=== PATIENT | female | born 1945 | race Caucasian/White ===

== ENCOUNTER → 2023-08-08 10:43 | Outpatient (REF) | payer MEDICARE, OTHER, SELFPAY ==
[2023-08-08 16:52] LABS: Free T3 3.45 pg/ml (2.77-5.27); Free T4 1.35 ng/dl (0.78-2.19)
== END ==
LOC: HWLAB 10:43
PROVIDERS: ATTENDING PHYSICIAN Nurse Practitioner
DX: E03.9 Hypothyroidism, unspecified (principal)
CPT/HCPCS: 36415; 84439; 84443; 84481

== ENCOUNTER 2023-08-31 08:52 | Emergency (ER) | payer MEDICARE, OTHER, SELFPAY ==
[2023-08-31] VITALS (18 sets, daily range): BP systolic 94–136; BP diastolic 52–119; BMI 25.6
[2023-08-31 09:34] LABS: % Eosinophils 2.2 % (0-6); % Immature Granulocytes 0.6 % (0-0.5); % Lymphocytes 26.2 % (20.5-51.1); % Monocytes 7.5 % (1.7-9.3); % Neutrophils 62.5 % (42.2-75.2); Absolute Basophils 0.1 10^3/uL (0-0.2); Absolute Eosinophils 0.2 10^3/uL (0-0.7); Absolute Lymphocytes 1.8 10^3/uL (1.2-3.4); Absolute Monocytes 0.5 10^3/uL (0.1-0.6); Absolute Neutrophils 4.3 10^3/uL (1.4-6.5); Hematocrit 48.9 % (37.0-47.0); Hemoglobin 16.5 g/dL (12.0-16.0); Mean Corp Hgb Conc. 33.7 g/dL (33.0-37.0); Mean Corpuscular Hgb 32.7 pg (27.0-31.0); Mean Corpuscular Volume 96.8 fL (81.0-99.0); Mean Platelet Volume 11.3 fL (7.4-10.4); Nucleated Red Blood Cells % 0 %; Platelet Count 203 10^3/uL (130-400); Red Blood Cell Count 5.05 10^6/uL (4.20-5.40); Red Cell Dist. Width 12.4 % (11.5-14.5); White Blood Cell Count 6.8 10^3/uL (4.8-10.8)
[2023-08-31 09:46] LABS: ALT (SGPT) 31 U/L (0-35); AST (SGOT) 30 U/L (14-36); Albumin 4.5 g/dl (3.5-5.0); Alkaline Phosphatase 61 U/L (38-126); Blood Urea Nitrogen 22 mg/dl (7-17); Calcium 10.1 mg/dl (8.4-10.2); Carbon Dioxide 27 mmol/L (22-30); Chloride 104 mmol/L (98-107); Estimated Creatinine Clearance 42 ml/min; Glucose 108 mg/dl (70-99); Potassium 4.3 mmol/L (3.5-5.1); Sodium 136 mmol/L (135-145); Total Bilirubin 1.1 mg/dl (0.2-1.3); Total Protein 7.2 g/dl (6.3-8.2); eGFR > 60.00
[2023-08-31] MEDS: DIPRIVAN 60 MG IV (10:46)
--- NOTE | 2023-08-31 11:24 | ED.GENMED ---
History of Present Illness
General
Chief Complaint: Cardiac Symptoms
Source: patient
Exam Limitations: none
Time Seen by Provider: 08/31/23 09:06
Nursing documentation reviewed up to this point in time: agreed with
Travel History
Have you had any contact with someone who has COVID-19?: No
Do you have any symptoms of coronavirus? Fever > 100 degrees, chills, cough, shortness of breath, sore throat, loss of taste or smell, muscle aches, or headache?: No
History of Present Illness
History of Present Illness:
Nfezcqv-gzwk-son female presents to the emergency department due to a rapid heart rate. She had a rapid heart rate in the 120s on , and called her pants closer on Friday. She spoke with Dr. Coates, and was told to increase her
metoprolol, and if her heart rate was still elevated in 1 to 2 days, to come to the emergency department.
Past History
Past History
ED Past Medical History: Arrthythmia and Hypothyroidism
ED Past Surgical History: Cardiac (Valvuloplasty/mitral valve) and Gynecological
Social History
Tobacco: Non-smoker
Alcohol: None
Drug: None
Personal: Other (a friend is accomanying her today)
Living: alone
Employment: Retired
Family History
Family History: Other (Noncontributory)
Review of Systems
Review of Systems
Allergies reviewed?: Yes
All Other Systems: Not applicable
Constitutional: Reports no symptoms
EENT: Reports no symptoms
Respiratory: Reports no symptoms
Cardiac: Reports no symptoms
ABD/GI: Reports no symptoms
: Reports no symptoms
Musculoskeletal: Reports no symptoms
Skin: Reports no symptoms
Neurological: Reports no symptoms
Endocrine: Reports no symptoms
Hematologic/Lymphatic: Reports no symptoms
Psychiatric: Reports no symptoms
Phy Exam
Physical Exam
Physical Exam:
Physical Exam
General: no apparent distress, not acutely ill
Neck: supple. no meningeal signs. normal posterior pharynx
Heart: s1/s2 tachycardia, regular rhythm, no murmur. equal radial
pulses.
HEENT: Pupils equal round reactive to light, EOMI
Lungs: no acute respiratory distress. clear bilaterally
Abdomen: normal bowel sounds. not tender. no CVAT
Neuro: alert and oriented. no focal neurological deficits cranial nerves II through XII intact
Skin: no rash
Psychiatric: well kept. interactive and cooperative
Extremities: no edema. no calf tenderness. negative homans. good distal pulses
Course
Orders/Labs/Results
Orders:
Orders
08/31/23 09:01
EKG [Electrocardiogram (*1)] Urgent
Reason for Study: Palpitations
EKG- Treatment ONCE
08/31/23 09:25
Complete Blood Count/With Diff Urgent
Comprehensive Metabolic Panel Urgent
08/31/23 10:01
Propofol [Diprivan] 60 mg IV NOW STA
08/31/23 10:02
ASA Classification Routine
08/31/23 10:50
Electrocardiogram (*1) Urgent
Reason for Study: Other
Other Reason for Exam: s/p cardioversion
08/31/23 10:51
EKG- Treatment ONCE
Abnormal Lab Results
08/31/23
09:25
Hgb 16.5 H g/dL
(12.0-16.0)
Hct 48.9 H %
(37.0-47.0)
MCH 32.7 H pg
(27.0-31.0)
MPV 11.3 H fL
(7.4-10.4)
Immature Gran % 0.6 H %
(0-0.5)
BUN 22 H mg/dl
(7-17)
Glucose 108 H mg/dl
(70-99)
08/31/23 09:25
08/31/23 09:25
Vital Signs
Initial and Last Documented VS:
Initial Vital Signs
Temp Pulse Resp BP Pulse Ox
98.6 F 141 18 133/89 97
08/31/23 08:57 08/31/23 08:57 08/31/23 08:57 08/31/23 08:57 08/31/23 08:57
Last Documented Vital Signs
Temp Pulse Resp BP Pulse Ox
98.6 F 77 15 99/81 96
08/31/23 08:57 08/31/23 11:00 08/31/23 11:00 08/31/23 11:00 08/31/23 11:00
Procedures
Moderate Sedation
ASA Risk Score: Class II
Chart and allergies reviewed: Yes
Consent for anesthesia obtained: Yes
Time out completed (validating right patient & procedure): Yes
Moderate Sedation Start Time(when first medication is given): 10:46
History of difficult intubation: No
Airway free of obstruction: Yes
Patient has a gag reflex: Yes
Patient is able to open mouth: Yes
Patient has no dentures: Yes
Patient has no loose teeth: Yes
Medication administered by Provider during Moderate Sedation: IV Propofol (mg)
Total dose administered: 60
Time drug administered: 10:46
Moderate Sedation Procedure End Time: 10:56
Cardioversion
Indication:: Other (aflutter)
Performed by:: [facility]
Synchronized?: Yes
Energy Used: 150 joules
Number of attempts: 1
Successful?: Yes
ASA Risk Score: Class II
Any reaction or bad outcome to prior sedation/anesthesia?: No history of a reaction
Sedation level to be attained: moderate
Chart and allergies reviewed: Yes
Patient reassessed prior to sedation: Yes
Time out completed at (validating right patient & procedure): 10:45
History of difficult intubation: No
Airway free of obstruction: Yes
Patient has a gag reflex: Yes
Patient is able to open mouth: Yes
Patient has no dentures: Yes
Patient has no loose teeth: Yes
Medication administered by Provider during Moderate Sedation: IV Propofol (mg)
Total dose administered: 60
Time drug administered: 10:46
Start Time: 10:46
Stop Time: 10:56
MDM/Problems Addressed
Differential Diagnosis Includes:
Rapid atrial fibrillation, rapid atrial flutter, hyperthyroidism
MDM/Problems Addressed:
77 yo female with rapid atrial flutter. Asymptomatic. D/w Dr. Garcia, recommended cardioversion. Cardioversion was successful. Stable for discharge. Will increase metoprolol to 25 mg twice daily.
Chronic conditions affecting care: Arrhythmia
Acute Exacerbation and/or Progression of Chronic Illness: Arrhythmia
*Critical Care Note
Total Time (30-74mins, 75-104mins- exclusive of procedures): Not Applicable
ED Attending Note
-
Portions of this chart may have been created with voice recognition software.� Occasional wrong word or��sound alike� substitutions may have occurred due to the inherent limitations of voice recognition software.
Discharge Plan
Departure
Patient Disposition: Home (Routine Discharge)
Date of Disposition: 08/31/23
Time of Disposition: 11:35
Patient with high blood pressure during this ER visit?: No
Condition: Good
Discharge Problem:
Atrial flutter
Instructions: Atrial Fibrillation and Atrial Flutter ED, MODERATE SEDATION ADULT
Prescriptions:
No Action
levothyroxine 100 MCG tablet
100 mcg PO SUMOWETHFRSA
alprazolam 0.5 mg Tablet
0.125 mg PO DAILYPRN PRN (Reason: anxiety/sleep)
Eliquis 5 mg Tablet
5 mg PO BID
acetaminophen [Tylenol] 325 mg Tablet
325 mg PO PRN PRN (Reason: pain)
estrogens-methyltestosterone 0.625-1.25 mg Tablet
0.5 tab PO Q72H
medroxyprogesterone 2.5 mg Tablet
2.5 mg PO Q72H
calcium carb-D3-mag ox-zinc ox 333 mg-133 unit -133 mg-5 mg Tablet
1 tab PO HS
levothyroxine 75 mcg Tablet
75 mcg PO .Q72H
biotin 1,000 mcg Tablet,Chewable
3,000 mcg PO DAILY
tramadol 50 mg Tablet
25 mg PO DAILYPRN PRN (Reason: pain)
Rx Instructions:
Only takes during long flights
fluticasone propionate 50 mcg/actuation [place],Suspension
1 spray INTRANASAL DAILY PRN (Reason: congestion)
Rx Instructions:
pain in ears; takes with air travel
Probiotic/Prebiotic
1 cap PO DAILY
metoprolol succinate 25 mg Tablet Extended Release 24 Hr
25 mg PO DAILY
pantoprazole [pantoprazole] 40 mg tablet,delayed release (DR/EC)
40 mg PO DAILY Qty: 60 0RF
Rx Instructions:
Twice a day for 1 month post procedure, then stop
Referrals:
Bal Nelson MD [Active] - Call in 1-3 days for appt
Rajani Escobar CRNP [Family Provider] -
Activity Restrictions/Additional Instructions:
Increase metoprolol to 25 mg twice a day. Follow-up with cardiology.
Interventions
Interventions:
*Risk Screen - Suicide Last Done: 08/31/23 09:00
*General Assessment Last Done: 08/31/23 09:00
*Neglect/Abuse Screening Last Done: 08/31/23 09:00
*ED COVID-19 Vaccine History Last Done: 08/31/23 09:00
ED- Pulmonary Assessment Last Done: 08/31/23 09:14
ED- Cardiac Assessment Last Done: 08/31/23 09:14
Discharge Date and Time
Print Language: SLOVAK
[2023-08-31 13:25] LABS: TSH Reflex To Free T4 0.08 uIU/ml (0.47-4.68)
[2023-08-31 13:54] LABS: Free T4 1.41 ng/dl (0.78-2.19)
== END 2023-08-31 12:23 | disposition home or self-care (01) ==
LOC: EMR 08:52
PROVIDERS: EMERGENCY PHYSICIAN Emergency Medicine; FAMILY PHYSICIAN Nurse Practitioner
DX: I48.92 Unspecified atrial flutter (principal); I49.9 Cardiac arrhythmia, unspecified
CPT/HCPCS: 92960; 99285; 99152; 80053; 84439; 84443; 85025; 93005

== ENCOUNTER → 2023-10-16 10:56 | Outpatient (REF) | payer MEDICARE, OTHER, SELFPAY ==
[2023-10-16 13:05] LABS: Vitamin D, 25-OH*** 50.2 ng/mL (30-80)
== END ==
LOC: HWLAB 10:56
PROVIDERS: ATTENDING PHYSICIAN Nurse Practitioner
DX: E03.8 Other specified hypothyroidism (principal); R53.83 Other fatigue; E03.9 Hypothyroidism, unspecified; E55.9 Vitamin D deficiency, unspecified
CPT/HCPCS: 36415; 82306; 84443

== ENCOUNTER → 2023-11-13 13:59 | Outpatient (REF) | payer MEDICARE, OTHER, SELFPAY | LOC: RAD 13:59 | PROVIDERS: ATTENDING PHYSICIAN Nurse Practitioner | DX: M79.672 Pain in left foot (principal) | CPT/HCPCS: 73610; 73630 ==

== ENCOUNTER → 2023-12-12 10:09 | Outpatient (REF) | payer MEDICARE, OTHER, SELFPAY ==
[2023-12-12 13:07] LABS: Free T3 2.66 pg/ml (2.77-5.27); Free T4 1.08 ng/dl (0.78-2.19); Total Thyroxine 8.42 ug/dl (5.5-11.0)
[2023-12-12 13:20] LABS: TSH 0.98 uIU/ml (0.47-4.68)
== END ==
LOC: HWLAB 10:09
PROVIDERS: ATTENDING PHYSICIAN Nurse Practitioner
DX: E05.90 Thyrotoxicosis, unspecified without thyrotoxic crisis or storm (principal)
CPT/HCPCS: 36415; 84436; 84439; 84443; 84481

== ENCOUNTER 2023-12-28 16:15 | Emergency (ER) | payer MEDICARE, OTHER, SELFPAY ==
[2023-12-28 16:18] VITALS: BP 151/76
--- NOTE | 2023-12-28 17:23 | ED.GENMED ---
History of Present Illness
General
Chief Complaint: Extremity Pain (non-traumatic)
Time Seen by Provider: 12/28/23 16:50
History of Present Illness
History of Present Illness:
78-year-old female presents to the emergency department for evaluation of a crush injury to the right fourth finger, was crushed in the garage door. Went to urgent care and waited for an extensive time however x-rays were not available thus was
sent to the emergency department.
Past History
Past History
ED Past Medical History: Arrthythmia and Hypothyroidism
ED Past Surgical History: Cardiac (Valvuloplasty/mitral valve) and Gynecological
Social History
Tobacco: Non-smoker
Alcohol: None
Drug: None
Personal: Other (a friend is accomanying her today)
Living: alone
Employment: Retired
Family History
Family History: Other (Noncontributory)
Review of Systems
Review of Systems
Allergies reviewed?: Yes
All Other Systems: ROS reviewed and negative except as documented in HPI and ROS
Phy Exam
Physical Exam
Physical Exam:
GEN: Well appearing, NAD, WDWN
HEENT: Oral mucosa moist, no scleral icterus
Cardiac: Regular rate
Lung: No respiratory distress, no tachypnea
MSK: Complete avulsion of nail plate of the right ring finger. After removal of the avulsed nail plate there is a subcentimeter laceration transverse through the nailbed, no exposed osseous tissue
Skin: Good color, no pallor or jaundice, no rashes
Neuro: AO x3, moves all extremities freely
Psych: Calm, cooperative
Course
Orders/Labs/Results
Orders:
Orders
12/28/23 16:20
Hand, Right 3 View [CR Hand - Right Min 3 Views] Urgent
Comment:
Reason For Exam: pain
12/28/23 17:46
Cephalexin Monohydrate [Keflex] 500 mg PO NOW STA
Vital Signs
Initial and Last Documented VS:
Initial Vital Signs
Temp Pulse Resp BP Pulse Ox
98 F 62 16 151/76 98
12/28/23 16:18 12/28/23 16:18 12/28/23 16:18 12/28/23 16:18 12/28/23 16:18
Last Documented Vital Signs
Temp Pulse Resp BP Pulse Ox
98 F 60 18 151/76 97
12/28/23 16:18 12/28/23 18:18 12/28/23 18:18 12/28/23 16:18 12/28/23 18:18
Procedures
Laceration Closure
Right Fourth Finger:
Status of Wound: clean
Size of Wound in cm: 0.5
Description of Wound Edges: sharp
Preparation: cleaned with saline
Anesthesia: 1% Lidocaine
Revision/Debridement: other (Removal of avulsed nail plate performed)
Wound exploration: no tendon involvement
Type of Closure: single layer closure
Skin Closure Material: other (6-0 Monocryl)
Number of sutures: 2
MDM/Problems Addressed
MDM/Problems Addressed:
Patient with a questionable tuft fracture on imaging, will treat as an open fracture after nail plate was removed, empiric antibiotics and loose closure of nailbed wound. Dressed with Xero[employer], will refer to hand surgery on an outpatient basis
*Critical Care Note
Total Time (30-74mins, 75-104mins- exclusive of procedures): Not Applicable
ED Attending Note
-
Portions of this chart may have been created with voice recognition software.� Occasional wrong word or��sound alike� substitutions may have occurred due to the inherent limitations of voice recognition software.
Discharge Plan
Departure
Patient Disposition: Home (Routine Discharge)
Date of Disposition: 12/28/23
Time of Disposition: 17:23
Patient with high blood pressure during this ER visit?: No
Discharge Problem:
Open fracture of tuft of distal phalanx of finger
Instructions: Nail Avulsion (DC)
Prescriptions:
New
cephalexin 500 mg capsule
500 mg PO Q8H 5 Days Qty: 15 0RF
triamcinolone acetonide 0.1 % cream
1 applic topical BID 5 Days Qty: 30 0RF
No Action
levothyroxine 100 MCG tablet
100 mcg PO SUMOWETHFRSA
alprazolam 0.5 mg Tablet
0.125 mg PO DAILYPRN PRN (Reason: anxiety/sleep)
Eliquis 5 mg Tablet
5 mg PO BID
acetaminophen [Tylenol] 325 mg Tablet
325 mg PO PRN PRN (Reason: pain)
estrogens-methyltestosterone 0.625-1.25 mg Tablet
0.5 tab PO Q72H
medroxyprogesterone 2.5 mg Tablet
2.5 mg PO Q72H
calcium carb-D3-mag ox-zinc ox 333 mg-133 unit -133 mg-5 mg Tablet
1 tab PO HS
levothyroxine 75 mcg Tablet
75 mcg PO .Q72H
biotin 1,000 mcg Tablet,Chewable
3,000 mcg PO DAILY
tramadol 50 mg Tablet
25 mg PO DAILYPRN PRN (Reason: pain)
Rx Instructions:
Only takes during long flights
fluticasone propionate 50 mcg/actuation [place],Suspension
1 spray INTRANASAL DAILY PRN (Reason: congestion)
Rx Instructions:
pain in ears; takes with air travel
Probiotic/Prebiotic
1 cap PO DAILY
metoprolol succinate 25 mg Tablet Extended Release 24 Hr
25 mg PO DAILY
pantoprazole [pantoprazole] 40 mg tablet,delayed release (DR/EC)
40 mg PO DAILY Qty: 60 0RF
Rx Instructions:
Twice a day for 1 month post procedure, then stop
Referrals:
Devante Acosta MD [Active] -
Machelle Canseco MD [Family Provider] -
Activity Restrictions/Additional Instructions:
If you cannot see the hand specialist within 24 hours, change the bandage and wash with soap and water
Please replace the bandage with antibiotic ointment and non stick gauze
Take the preventive antibiotics as prescribed
The topical steroid is for the rash on your arm and face, do not use for longer than 5 days
Interventions
Interventions:
*Risk Screen - Suicide Last Done: 12/28/23 18:19
*General Assessment Last Done: 12/28/23 18:19
*Neglect/Abuse Screening Last Done: 12/28/23 18:19
ED- Fall Risk Assessment Last Done: 12/28/23 18:19
*ED COVID-19 Vaccine History Last Done: 12/28/23 18:19
*Nursing Disposition Last Done: 12/28/23 18:19
ED-Skin Assessment Last Done: 12/28/23 18:16
ED-Peripheral Vascular Assessment Last Done: 12/28/23 18:16
ED-Musculoskeletal Assessment Last Done: 12/28/23 18:16
Discharge Date and Time
Discharge Date/Time: 12/28/23 18:20
Print Language: SYRIAC
[2023-12-28] MEDS: KEFLEX 500 MG PO (18:05)
== END 2023-12-28 18:20 | disposition home or self-care (01) ==
LOC: EMR 16:15
PROVIDERS: EMERGENCY PHYSICIAN Emergency Medicine; FAMILY PHYSICIAN Internal Medicine
DX: S62.664B Nondisplaced fracture of distal phalanx of right ring finger, initial encounter for open fracture (principal); W23.0XXA Caught, crushed, jammed, or pinched between moving objects, initial encounter
CPT/HCPCS: 99283; 11730; 73130

== ENCOUNTER → 2024-02-26 11:07 | Outpatient (REF) | payer MEDICARE, OTHER, SELFPAY | LOC: HWWDC 11:07 | PROVIDERS: ATTENDING PHYSICIAN Obstetrics & Gynecology Gynecology; FAMILY PHYSICIAN Internal Medicine | DX: Z12.31 Encounter for screening mammogram for malignant neoplasm of breast (principal) | CPT/HCPCS: 77063; 77067 ==

== ENCOUNTER → 2024-03-04 10:16 | Outpatient (REF) | payer MEDICARE, OTHER, SELFPAY ==
[2024-03-04 16:28] LABS: Total Thyroxine 6.93 ug/dl (5.5-11.0)
[2024-03-04 16:41] LABS: TSH 2.28 uIU/ml (0.47-4.68)
== END ==
LOC: HWRCS 10:16
PROVIDERS: ATTENDING PHYSICIAN Internal Medicine Cardiovascular Disease; FAMILY PHYSICIAN Internal Medicine; REFERRING PHYSICIAN Nurse Practitioner
DX: I48.0 Paroxysmal atrial fibrillation (principal); I05.0 Rheumatic mitral stenosis
CPT/HCPCS: 36415; 84436; 84439; 84443; 84481; 93306

== ENCOUNTER 2024-05-31 05:58 | Day surgery (SDC) | payer MEDICARE, OTHER, SELFPAY ==
[2024-05-24 08:37] VITALS: BMI 27.7
[2024-05-31] VITALS (11 sets, daily range): BP systolic 92–128; BP diastolic 50–70; BMI 26.7
--- NOTE | 2024-05-31 07:53 | ITS.CL.ABL ---
V[employer] - Ablation
Ablation
Procedure Report:
ELECTROPHYSIOLOGIC STUDY AND POSSIBLE ABLATION
DATE: 01/29/2025
Primary plug saw operator: Dr. Bal Nelson
INDICATION:
Symptomatic Atrial Fibrillation.
Persistent fibrillation and atrial flutter
HISTORY: See H and P.
Symptomatic AF, poorly controlled with attempted medical therapy
Prior left atrial ablations.
Additionally, she has history of mitral stenosis, mitral valvuloplasty (2000).
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 On 01/01/2023 she underwent ablation with re-isolation of RSPV, additional AF ablation set targeting areas of complex fractionated electrograms
at the anterior left atrial wall and ablation of the second tachycardia determined to be a single loop reentrant bi-atrial flutter. She did well post ablation, then had�reoccurrence atrial flutter in the setting of COVID-19 infection in February 2023
for which she underwent successful cardioversion.� She continued to recur with symptomatic arrhythmias.
HAS-BLED: 1
Age
CHADSVASc: 3
Age
F Gender
PRESENTING RHYTHM: atrial flutter
HISTORY: See H and P.
Symptomatic AF, poorly controlled with attempted medical therapy.
ANTICOAGULATION: Eliquis
'TIME-OUT': called and confirmed.
PRESENTING RHYTHM: Atypical atrial flutter, left atrial flutter.
HISTORY: See H and P.
Symptomatic AF, poorly controlled with attempted medical therapy.
ANTICOAGULATION: Eliquis
'TIME-OUT': called and confirmed.
SEDATION/ANESTHESIA: provided via the anesthesia department using general anesthesia.
PROCEDURE:
Ultrasound Guidance with real-time visualization of needle insertion and vessel patency performed by wy for femoral venous Vascular Access. Images were taken and saved for the patient's permanent record. Imaging findings typical femoral venous
anatomy. Direct visualization of needle puncture into the femoral vein was observed and recorded.
A decapolar CS catheter was placed within the CS for mapping and pacing. Initial activation sequence is distal to proximal
The intracardiac ultrasound catheter was positioned in the RA for continuous intracardiac ultrasound imaging.
Heparin bolus and infusion to target ACT at 300 -350 seconds was administered. Transseptal puncture was performed. This entailed advancing a sheath with dilator into the superior vena cava and withdrawing both (monitoring intracardiac ultrasound,
fluoroscopy and tip pressure) with the tip oriented toward the atrial septum. The fossa ovalis was engaged (indicated by sudden displacement of the sheath tip as well as tenting of the fossa seen on intracardiac ultrasound).
Transseptal puncture was performed. Left atrial catheter position was confirmed by echocardiographic imaging, pressure monitoring (LA mean pressure 12 mm Hg) and fluoroscopy. The sheath was advanced over the dilator and positioned in the left
atrium.
The [place] multipolar mapping/ablation Sphere-9 catheter was positioned through the transseptal sheath for high density mapping.
Geometry and voltage mapping was performed using the [employer] mapping system for three-dimensional electroanatomical mapping.
Catheter positioning was guided and confirmed using both I.C.E. and fluoroscopy.
Initial mapping finds 4 PVs (LSPV, LIPV, RSPV, RIPV) and there is reconnection at the RSPV anteriorly otherwise isolation of the PVs.
There is near isolation of the posterior wall of the left atrium with patchy fractionated electrograms at the posterior wall, mid wall connecting the dome and floor of the left atrium
There is a macro reentrant circuit which is rotating clockwise anteriorly around the mitral valve annulus.
Ablation strategy consisted of the following:
-Reisolation of the right superior pulmonary vein
-Additional ablation lesion set consisting of isolation of the posterior wall of the left atrium
-Mapping and ablation of multiple left atrial macro reentrant tachycardias (mapping included both activation mapping as well as entrainment mapping) which included mitral annular flutter with ablation from the left inferior pulmonary vein down to
the mitral valve annulus consisting of initial PFA lesions closer to the left inferior pulmonary vein and RF lesions closer to the mitral valve annulus. During this ablation tachycardia activation sequence changed from distal to proximal to
proximal to distal with shortening of the cycle length from 310 ms to 270 ms. Remapping found a Micra reentrant circuit at the dome of the left atrium anteriorly, just anterior to the ostium of the left atrial appendage. Ablation at this location
resulted in changes of tachycardia cycle length to 260 ms. Additional mapping suggests focal tachycardia at the anterior left atrium between the right superior pulmonary vein and the mitral valve annulus. While manipulating the catheter at this
location the tachycardia terminated to sinus rhythm and could not be reinduced. PFA ablation at this area was performed and PFA ablation was extended from the area of reconnection at the right superior pulmonary vein down to the mitral valve
annulus.
-Programmed electrical stimulation which consisted of burst atrial pacing down to atrial ERP as well as delivery of atrial decremental extrastimuli down to atrial ERP was unable to induce any arrhythmia.
I.C.E. :
Pre-Ablation Post-Ablation
LVEF: 55 % 55 %
WMA: none none
Pericardial effusion: none none
COMPLICATIONS:
None
SUMMARY:
- Mapping and ablation to isolate the PVs
- Additional AF ablation set after PVI.
- Mapping and ablation of second tachycardia
- 3-D Electroanatomical Mapping
- Intracardiac Ultrasound
- Ultrasound guidance for vascular access
Post ablation, I discussed today's findings and results with the patient's significant other.
RECOMMENDATIONS:
- Observe in monitored bed.
- Maintain oral anticoagulation. She should be maintained on lifetime uninterrupted oral anticoagulation as today's lesion sets resulted in electrical isolation of the left atrial appendage therefore even in sinus rhythm she is at increased risk of
thrombi developing in the left atrial appendage. If she were to develop significant bleeding complications or intolerances to anticoagulation, left atrial appendage occlusion should be considered
- If she were to recur with atrial arrhythmias it unlikely that another ablation would be of significant value and I would strongly consider antiarrhythmic drug therapy
- Office visit with her primary plug saw operator, Dr. Nelson in 3-4 months.
Copy to:
Dr. Bal Nelson
[2024-05-31 08:58] LABS: ACT-LR - POC 355 Seconds (116-155)
[2024-05-31 09:18] LABS: ACT-LR - POC 395 Seconds (116-155)
--- NOTE | 2024-05-31 14:28 | W.PN.UPDATE ---
Update Note
Progress Note Update
Pt seen post PFA. Right groin without ht/bleeding. OOB ambulating, urinating without difficulty. Post EKG NSR 60s w/1st deg AVB, no acute changes. Resume eliquis tonight at usual time. Continue other meds as before. Followup with Dr. Nelson as
scheduled. Home today if groin site/tele remain stable.
[2024-05-31 15:27] LABS: ACT-LR - POC > 397 Seconds (116-155)
== END 2024-05-31 14:35 | disposition home or self-care (01) ==
LOC: CATH 05:58
PROVIDERS: ATTENDING PHYSICIAN Internal Medicine Cardiovascular Disease; FAMILY PHYSICIAN Internal Medicine; OTHER PHYSICIAN Internal Medicine Cardiovascular Disease
DX: I48.19 Other persistent atrial fibrillation (principal); I48.4 Atypical atrial flutter; Z79.890 Hormone replacement therapy; Z79.01 Long term (current) use of anticoagulants; E03.9 Hypothyroidism, unspecified; Z88.0 Allergy status to penicillin; Z88.2 Allergy status to sulfonamides; Z88.6 Allergy status to analgesic agent; Z88.5 Allergy status to narcotic agent; Z88.1 Allergy status to other antibiotic agents; Z88.8 Allergy status to other drugs, medicaments and biological substances
CPT/HCPCS: C1730; C1894; C1733; C1892; C1766; 76937; 85347; 93005; 93655; 93656; 93657

== ENCOUNTER 2024-07-22 14:29 | Emergency (ER) | payer MEDICARE, OTHER, SELFPAY ==
[2024-07-22 14:33] VITALS: BP 146/68
--- NOTE | 2024-07-22 14:55 | ED.GENMED ---
History of Present Illness
General
Chief Complaint: Skin Surface Trauma
Time Seen by Provider: 07/22/24 14:39
History of Present Illness
History of Present Illness:
78 yo female presents for evaluation of a minor laceration to the R forehead. Struck in a glancing blow by a car door. On OAC. Last tetanus unknown.
Past History
Past History
ED Past Medical History: Arrthythmia and Hypothyroidism
ED Past Surgical History: Cardiac (Valvuloplasty/mitral valve) and Gynecological
Social History
Tobacco: Non-smoker
Alcohol: None
Drug: None
Personal: Other (a friend is accomanying her today)
Living: alone
Employment: Retired
Family History
Family History: Other (Noncontributory)
Review of Systems
Review of Systems
Allergies reviewed?: Yes
All Other Systems: ROS reviewed and negative except as documented in HPI and ROS
Phy Exam
Physical Exam
Physical Exam:
GEN: Well appearing, NAD, WDWN
HEENT: Oral mucosa moist, no scleral icterus. Minor skin tear to R forehead
Cardiac: Regular rate
Lung: No respiratory distress, no tachypnea
MSK: No gross deformity or injuries
Skin: Good color, no pallor or jaundice, no rashes
Neuro: AO x3, moves all extremities freely
Psych: Calm, cooperative
Course
Vital Signs
Initial and Last Documented VS:
Initial Vital Signs
Temp Pulse Resp BP Pulse Ox
98.5 F 66 16 146/68 98
07/22/24 14:33 07/22/24 14:33 07/22/24 14:33 07/22/24 14:33 07/22/24 14:33
Last Documented Vital Signs
Temp Pulse Resp BP Pulse Ox
98.5 F 66 16 146/68 98
07/22/24 14:33 07/22/24 14:33 07/22/24 14:33 07/22/24 14:33 07/22/24 14:33
MDM/Problems Addressed
MDM/Problems Addressed:
Minor skin tear, no adjacent cephalohematoma. No indication for imaging. Wound cleansed and dressed
*Critical Care Note
Total Time (30-74mins, 75-104mins- exclusive of procedures): Not Applicable
ED Attending Note
-
Portions of this chart may have been created with voice recognition software.� Occasional wrong word or��sound alike� substitutions may have occurred due to the inherent limitations of voice recognition software.
Discharge Plan
Departure
Patient Disposition: Home (Routine Discharge)
Date of Disposition: 07/22/24
Time of Disposition: 14:58
Patient with high blood pressure during this ER visit?: No
Discharge Problem:
Skin tear
Instructions: Wound Care (DC)
Prescriptions:
No Action
alprazolam 0.5 mg Tablet
0.125 mg PO DAILYPRN PRN (Reason: anxiety/sleep)
Eliquis 5 mg Tablet
5 mg PO BID
acetaminophen [Tylenol] 325 mg Tablet
325 mg PO PRN PRN (Reason: pain)
estrogens-methyltestosterone 0.625-1.25 mg Tablet
0.5 tab PO Q72H
medroxyprogesterone 2.5 mg Tablet
2.5 mg PO Q72H
calcium carb-D3-mag ox-zinc ox 333 mg-133 unit -133 mg-5 mg Tablet
1 tab PO HS
levothyroxine 75 mcg Tablet
75 mcg PO SUMOWETHFRSA
biotin 1,000 mcg Tablet,Chewable
3,000 mcg PO DAILY
tramadol 50 mg Tablet
25 mg PO DAILYPRN PRN (Reason: pain)
fluticasone propionate 50 mcg/actuation [place],Suspension
1 spray INTRANASAL DAILY PRN (Reason: congestion)
Probiotic/Prebiotic
1 cap PO DAILY
metoprolol succinate [Toprol XL] 50 mg Tablet Extended Release 24 Hr
50 mg PO BID
metoprolol succinate [Toprol XL] 25 mg Tablet Extended Release 24 Hr
12.5 mg PO BID
escitalopram oxalate [Lexapro] 10 mg Tablet
10 mg PO DAILY
levothyroxine 75 mcg Tablet
37.5 mcg PO TU
Activity Restrictions/Additional Instructions:
The dressing can be removed tomorrow and you should rinse gently with soap and water each day
Keep covered as long as bleeding is noted
Interventions
Interventions:
*Risk Screen - Suicide Last Done: 07/22/24 14:33
*General Assessment Last Done: 07/22/24 14:50
*Neglect/Abuse Screening Last Done: 07/22/24 14:33
*ED COVID-19 Vaccine History Last Done: 07/22/24 14:50
*Nursing Disposition Last Done: 07/22/24 15:11
ED-Skin Assessment Last Done: 07/22/24 14:50
Discharge Date and Time
Discharge Date/Time: 07/22/24 15:11
Print Language: BARBADIAN
== END 2024-07-22 15:11 | disposition home or self-care (01) ==
LOC: EMR 14:29
PROVIDERS: EMERGENCY PHYSICIAN Emergency Medicine; FAMILY PHYSICIAN Internal Medicine
DX: S01.81XA Laceration without foreign body of other part of head, initial encounter (principal); W22.09XA Striking against other stationary object, initial encounter; E03.9 Hypothyroidism, unspecified
CPT/HCPCS: 99282

== ENCOUNTER → 2024-10-19 12:33 | Outpatient (REF) | payer MEDICARE, OTHER, SELFPAY ==
[2024-10-19 15:56] LABS: Free T4 1.29 ng/dl (0.78-2.19); Total Thyroxine 9.39 ug/dl (5.5-11.0)
[2024-10-19 16:10] LABS: TSH 0.36 uIU/ml (0.47-4.68)
== END ==
LOC: HWLAB 12:33
PROVIDERS: ATTENDING PHYSICIAN Nurse Practitioner
DX: E05.90 Thyrotoxicosis, unspecified without thyrotoxic crisis or storm (principal)
CPT/HCPCS: 36415; 84436; 84439; 84443; 84481

== ENCOUNTER → 2025-01-07 11:16 | Outpatient (REF) | payer MEDICARE, OTHER, SELFPAY ==
[2025-01-07 15:47] LABS: Free T3 3.62 pg/ml (2.77-5.27)
[2025-01-07 16:00] LABS: TSH 0.51 uIU/ml (0.47-4.68)
== END ==
LOC: HWLAB 11:16
PROVIDERS: ATTENDING PHYSICIAN Nurse Practitioner
DX: E03.9 Hypothyroidism, unspecified (principal)
CPT/HCPCS: 36415; 84436; 84439; 84443; 84481